=== PATIENT | male | born 1985 | race Hispanic/Latino ===

== ENCOUNTER 2024-01-05 14:36 | Emergency (ER) | payer SELFPAY ==
[2024-01-05] MEDS ORDERED: Ketorolac Tromethamine 30 MG (1 mL) VIAL ONE (15:29)
== END 2024-01-05 15:52 | disposition home or self-care (01) ==
LOC: ERS 14:36
DX: K08.89 Other specified disorders of teeth and supporting structures (principal)
CPT/HCPCS: 96372; 99282; J1885